=== PATIENT | female | born 1970 | race Caucasian/White ===

== ENCOUNTER → 2016-07-05 | Outpatient (CLI) | payer MEDICARE, MEDICAID ==
[~2016-07-05] MED LIST: Iopamidol 755 MG/ML 500 ML Multipack Bottle IVPUSH STA
--- NOTE | 2016-07-05 12:44 | CT ---
CT of the abdomen and pelvis with contrast. HISTORY: Pain TECHNIQUE: Axial CT images were obtained of the abdomen and pelvis following administration of 100 m L of Isovue-370 in the right hand without complication. Coronal and sagittal reconstructions obtaine d. FINDINGS: The lung bases are clear, no pleural effusion. Tiny 2 to 4 mm left basilar lung nodules again noted. The liver, spleen, adrenal glands, and pancreas appear normal. The gallbladder is normal. There is n o bulky retroperitoneal lymphadenopathy or abdominal ascites. There is mild right and moderate left renal atrophy. The kidneys enhance and function symmetrically without evidence of obstructive uropat hy. Renal cortical cysts are noted. The visualized large and small bowel are normal in caliber without evidence of obstruction. No peric olonic inflammation or stranding. The appendix appears normal. There is a small left ovarian cyst me asuring 1.7 cm, new since 05/25/2016. Tiny right ovarian cyst noted. Hysterectomy. The urinary bladder appears normal. No free pelvic fluid. No suspicious osseous abnormalities identified. IMPRESSION: 1. No acute findings within the abdomen or pelvis. 2. Mild right and moderate left renal atrophy. 3. Small ovarian cysts. 4. Left basilar pulmonary nodules essentially unchanged in comparison to a CT chest dated 05/24/2013 and technically benign.
== END ==
LOC: MW.DI 07:47
PROVIDERS: ATTEND Student in an Organized Health Care Education/Training Program
DX: R10.9 Unspecified abdominal pain (principal); R50.9 Fever, unspecified; N26.1 Atrophy of kidney (terminal); N83.209 Unspecified ovarian cyst, unspecified side; R91.8 Other nonspecific abnormal finding of lung field
CPT/HCPCS: 74177; Q9967

== ENCOUNTER 2017-09-11 07:46 | Day surgery (SDC) | payer MEDICARE, MEDICAID ==
[~2017-09-11 07:46] MED LIST changes: -Iopamidol 755 MG/ML 500 ML Multipack Bottle IVPUSH STA; +Lactated Ringers 1,000 ML IV SCH
[2017-09-11] MEDS ORDERED: Propofol 200 MG/20 ML SDV ONE ×2 (08:26→09:45)
[2017-09-11] MEDS ORDERED: fentaNYL 100 MCG/2 ML SDV ONE (08:26)
[2017-09-11] MEDS ORDERED: Midazolam 1 MG/ML 2 ML SDV ONE (08:26)
--- NOTE | 2017-09-11 09:14 | PCM.PREANE ---
Preanesthetic Assessment - Procedure Proposed Procedure: EGD and Colonoscopy - Anesthesia/Transfusion/Family Hx Anesthesia History: Prior Anesthesia Without Reaction Other Type of Anesthesia Reaction Comment: "takes alot to put me to sleep & I wake up crabby" Family History of Anesthesia Reaction: No Transfusion History: No Prior Transfusion(s) Intubation History: Unknown Additional History: on dialysis last 2 years; last dialysis [id number]. - Review of Systems General: Other (chronic kidney failure; on dialysis) Pulmonary: Shortness of Breath (on exertion), Other (asthma) Gastrointestinal: Nausea, Other (GERD) Neurological: Numbness (peripheral neuropathy) Other: Reports: Anxiety - Physical Assessment NPO Status Date: 09/10/17 NPO Status Time: 22:00 O2 Sat by Pulse Oximetry: 99 Respiratory Rate: 16 Vital Signs: Last Vital Signs Temp 98.2 F 09/11/17 08:54 Pulse 66 09/11/17 08:54 Resp 16 09/11/17 08:54 BP 127/96 H 09/11/17 08:54 Pulse Ox 99 09/11/17 08:54 Height: 5 ft 3 in Weight: 197 lb ASA Class: 3 Mental Status: Alert & Oriented x3 Airway Class: Mallampati = 1 Dentition: Reports: Dentures (U/L) Thyro-Mental Finger Breadths: 3 Mouth Opening Finger Breadths: 3 ROM/Head Extension: Full Lungs: Clear to Auscultation, Normal Respiratory Effort Cardiovascular: Regular Rate, Regular Rhythm, No Murmurs Other: wears glasses - Allergies Allergies/Adverse Reactions: Allergies Allergy/AdvReac Type Severity Reaction Status Date / Time quinine Allergy Hives Verified 09/06/17 12:59 Sulfa (Sulfonamide Allergy Anaphylactic Verified 09/06/17 12:59 Antibiotics) Shock vancomycin Allergy Anaphylactic Verified 09/06/17 12:59 Shock avocado Allergy Swelling Uncoded 05/25/16 20:36 paper tape Allergy Blisters Uncoded 09/06/17 12:59 - Blood Blood Available: No Product(s) Available: None - Anesthesia Plan Pre-Op Medication Ordered: None - Acknowledgements Anesthesia Type Planned: MAC Pt an Appropriate Candidate for the Planned Anesthesia: Yes Alternatives and Risks of Anesthesia Discussed w Pt/Guardian: Yes Pt/Guardian Understands and Agrees with Anesthesia Plan: Yes PreAnesthesia Questionnaire HEENT History: Reports: Other (See Below) Other HEENT History: wears glasses, has top and bottom dentures Cardiovascular History: Reports: Hypertension Respiratory History: Reports: Asthma, PE, Sleep Apnea Other Respiratory History: does not use CPAP, PE 10 yrs ago with penumonia Gastrointestinal History: Reports: GERD Other Gastrointestinal History: Heart burn Genitourinary History: Reports: Dialysis Other Genitourinary History: 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, on waiting list for kidney transplant, dialysis on mon-mon-mon, will have dialysis on and monday the week of EGD-colonoscopy [employer]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: Musculoskeletal History: Reports: Gout Neurological History: Reports: CVA Other Neuro History: CVA x3 Psychiatric History: Reports: Anxiety Endocrine/Metabolic History: Reports: Obesity/BMI 30+ Hematologic History: Reports: None Oncologic (Cancer) History: Reports: Ovarian Dermatologic History: Reports: None - Infectious Disease History Infectious Disease History: Reports: Chicken Pox - Past Surgical History Head Surgeries/Procedures: Reports: None HEENT Surgical History: Reports: Tonsillectomy Other Cardiovascular Surgeries/Procedures: angioplasty 10 yrs ago Female Surgical History: Reports: Hysterectomy, Salpingo-Oophorectomy Other Female Surgeries/Procedures: Left AC dialysis port & later a coil place to dialysis catheter - SUBSTANCE USE Smoking Status *Q: Former Smoker Tobacco Use Within Last Twelve Months: No Second Hand Smoke Exposure: No Days Per Week of Alcohol Use: 0 Recreational Drug Use History: No - HOME MEDS Home Medications: Home Meds Allopurinol [Zyloprim] 1 tab PO DAILY 07/30/14 [History] Lisinopril 40 mg PO DAILY 03/05/15 [History] Ondansetron 4 mg PO ASDIRECTED PRN 03/05/15 [History] Vit No.130/Iron/FA [ Tablet] 1 tab PO DAILY 03/05/15 [History] Promethazine [Phenergan] 0.5 tab PO ASDIRECTED PRN 03/05/15 [History] ALPRAZolam [Alprazolam] 1 tab PO ASDIRECTED PRN 09/06/17 [History] Albuterol Sulfate [Proair Hfa] 2 puff INH ASDIRECTED PRN 09/06/17 [History] Doxazosin Mesylate [Cardura] 0.5 tab PO BID 09/06/17 [History] Fluticasone Propionate [Flonase Allergy Relief] 1 spray NASBOTH ASDIRECTED PRN 09/06/17 [History] Indomethacin 25 mg PO TID PRN 09/06/17 [History] Omeprazole 40 mg PO DAILY 09/06/17 [History] Ranitidine HCl 150 mg PO BEDTIME 09/06/17 [History] diphenhydrAMINE HCl [Benadryl Allergy] 1 tab PO ASDIRECTED PRN 09/06/17 [History ] - CURRENT (IN HOUSE) MEDS Current Meds: Current Medications Lactated Ringer's (Ringers, Lactated) 1,000 mls @ 125 mls/hr IV ASDIRECTED BRANDI Discontinued Medications Fentanyl (Sublimaze) Confirm Administered Dose 100 mcg .ROUTE .STK-MED ONE Stop: 09/11/17 08:27 Midazolam HCl (Versed 1 Mg/Ml) Confirm Administered Dose 2 mg .ROUTE .STK-MED ONE Stop: 09/11/17 08:27 Propofol (Diprivan 20 Ml) Confirm Administered Dose 200 mg .ROUTE .STK-MED ONE Stop: 09/11/17 08:27
--- NOTE | 2017-09-11 10:05 | PCM.OPNOTE ---
- General Post-Op/Procedure Note Date of Surgery/Procedure: 09/11/17 Operative Procedure(s): Esophagogastroduodenoscopy with biopsy. Colonoscopy. Pre Op Diagnosis: Epigastric pain with progressive heartburn. Change in bowel habits with rectal bleeding. Post-Op Diagnosis: Acute and chronic gastritis. Sigmoid diverticulosis. Internal hemorrhoids. Anesthesia Technique: MAC (ASA III) Primary Surgeon: Tim Merchant Condition: Good Free Text/Narrative:: DICTATION [id number] CPT CODE [id number]
[2017-09-11] MEDS ORDERED: Lactated Ringers 1,000 ML IV SCH (10:15)
--- NOTE | 2017-09-11 10:19 | PCM.POSTAN ---
POST ANESTHESIA ASSESSMENT - MENTAL STATUS Mental Status: Alert, Oriented - RESPIRATORY Respiratory Status: Respiratory Rate WNL, Airway Patent, O2 Saturation Stable - CARDIOVASCULAR CV Status: Pulse Rate WNL, Blood Pressure Stable - GASTROINTESTINAL GI Status: No Symptoms - PAIN Pain Score: 7 (Cramping pains - gas passing) - POST OP HYDRATION Hydration Status: Adequate & Stable
--- NOTE | 2017-09-11 10:25 | OR ---
SURGEON: Tim Merchant M.D. DATE OF PROCEDURE: 09/11/2017 OPERATION PERFORMED: Esophagogastroduodenoscopy with biopsy. ANESTHESIA: MAC. ASA CLASSIFICATION: III. PREOPERATIVE DIAGNOSIS: Persistent epigastric pain. POSTOPERATIVE DIAGNOSIS: Chronic gastritis. DESCRIPTION OF PROCEDURE: The patient was taken to the endoscopy room, positioned on the endoscopy table in the left lateral decubitus position. Time-out was called for appropriate identification of the patient and procedure. Monitored anesthesia care was provided. A bite block was placed between the patient's teeth. The gastroscope was inserted through the bite block into the oropharynx and advanced without difficulty through the esophagus and stomach into the duodenum where examination was carried out in a retrograde fashion. Duodenum shows no acute inflammatory changes or ulcerations. Stomach does show [id number] gastritis. Antral biopsies were obtained to look for the presence of Helicobacter pylori. The gastroscope was retroflexed to visualize the proximal stomach. No tumors were noted proximally. No ulcers were seen. The gastroscope was straightened in the stomach, aspirated and the scope slowly withdrawn. The GE junction is well defined and shows no acute inflammatory changes. No hiatal hernia was noted. Esophagus demonstrated good contractility. No mid or proximal lesions were identified. The vocal cords were briefly visualized, as the scope was withdrawn and noted to move symmetrically. The gastroscope was then removed with the patient having tolerated the procedure well. Following colonoscopy, she was taken to recovery room in stable condition. SKYLER / SOURAV /[id number]
[2017-09-11 10:38] VITALS: BP 133/75
--- NOTE | 2017-09-11 11:52 | OR ---
SURGEON: Tim Merchant M.D. DATE OF PROCEDURE: 09/11/2017 OPERATION PERFORMED: Colonoscopy. ANESTHESIA: MAC. ASA CLASSIFICATION: III. PREOPERATIVE DIAGNOSIS: Change in bowel habits with rectal bleeding. POSTOPERATIVE DIAGNOSIS: Sigmoid diverticulosis. DESCRIPTION OF PROCEDURE: With the patient having completed esophagogastroduodenoscopy, she was maintained in the left lateral decubitus position. The colonoscope was inserted into the rectum and advanced with minimal difficulty to the cecum where the colonoscope was retroflexed to visualize the ascending colon from below. The colonoscope was then straightened and slowly withdrawn. The cecum, ascending colon, hepatic flexure, transverse colon, splenic flexure, and descending colon showed no tumors, polyps, diverticula, or angiodysplastic changes. Sigmoid colon demonstrates numerous diverticula. No stricture, spasm, or bleeding was noted. No polyps were encountered in the sigmoid colon. The colonoscope was withdrawn to the rectum and retroflexed to visualize the anal orifice from above. The patient does have some small internal chronic hemorrhoids. No acute bleeding was noted. No polyps were encountered in the distal rectum. The colonoscope was straightened, the rectum aspirated, and the colonoscope removed. The patient tolerated the procedure well and was taken to recovery room in stable condition. SKYLER BENJAMIN /[id number]
== END 2017-09-11 10:45 | disposition home or self-care (01) ==
LOC: MW.SDS 07:46
PROVIDERS: ATTEND Surgery
DX: K29.50 Unspecified chronic gastritis without bleeding (principal); R19.4 Change in bowel habit; K62.5 Hemorrhage of anus and rectum; K57.30 Diverticulosis of large intestine without perforation or abscess without bleeding; K64.8 Other hemorrhoids; K21.9 Gastro-esophageal reflux disease without esophagitis; I12.0 Hypertensive chronic kidney disease with stage 5 chronic kidney disease or end stage renal disease; N18.6 End stage renal disease; Z99.2 Dependence on renal dialysis; J44.9 Chronic obstructive pulmonary disease, unspecified; E66.9 Obesity, unspecified; Z68.34 Body mass index [BMI] 34.0-34.9, adult; G47.33 Obstructive sleep apnea (adult) (pediatric); F41.9 Anxiety disorder, unspecified; E78.5 Hyperlipidemia, unspecified; Z87.891 Personal history of nicotine dependence; Z79.899 Other long term (current) drug therapy; Z88.2 Allergy status to sulfonamides; Z88.1 Allergy status to other antibiotic agents; Z91.018 Allergy to other foods
CPT/HCPCS: 43239; 45378; J2250; J3010; 88305; 88312; J2704